=== PATIENT | male | born 1985 | race Caucasian/White ===

== ENCOUNTER 2019-06-04 12:24 | Emergency (ER) | payer MEDICAID, OTHER ==
[~2019-06-04] VITALS: Ht 167.6 cm; Wt 77.0 kg
[2019-06-04 13:48] LABS: BASOPHILS % 0.4 % (0.0-2.0); EOSINOPHILS % 0.3 % (0.0-5.0); HEMATOCRIT. 40.7 % (42.0-52.0); LYMPHOCYTES % 17.6 % (20.0-50.0); MEAN CORPUSCULAR HEMOGLOBIN 32.6 pg (28.0-32.0); MEAN CORPUSCULAR VOLUME 95.1 fL (80.0-94.0); MEAN PLATELET VOLUME 8.5 fl (7.4-10.4); MONOCYTES % 8.9 % (2.0-8.0); NEUTROPHILS % 72.8 % (40.0-76.0); PLATELET 96 x1000/uL (130-400); RED BLOOD CELL COUNT 4.28 mill/uL (4.7-6.1); RED CELL DISTRIBUTION WIDTH 14.4 % (11.6-14.6)
[2019-06-04 13:56] LABS: CLARITY URINE CLEAR (CLEAR); COLOR URINE YELLOW (YELLOW); KETONES URINE NEGATIVE (NEGATIVE); LEUKOCYTE ESTERASE URINE NEGATIVE (NEGATIVE); NITRITE URINE NEGATIVE (NEGATIVE); OCCULT BLOOD URINE NEGATIVE (NEGATIVE); PH URINE 6.5 (4.5-8.0); PROTEIN URINE NEGATIVE (NEGATIVE); SPECIFIC GRAVITY URINE 1.008 (1.005-1.030); UROBILINOGEN URINE 0.2 E.U./dL (0.2-1.0)
[2019-06-04 13:56] LABS: CHLORIDE 106 mEq/L (98-107)
[2019-06-04 14:15] LABS: ETHANOL BLOOD 407 mg/dL
[2019-06-04 14:29] LABS: *BENZODIAZEPINES SCREEN URINE PRESUMTIVE POSITIVE (NEGATIVE)
[2019-06-04 14:30] LABS: *AMPHETAMINES SCREEN URINE NEGATIVE (NEGATIVE); CANNABINOID URINE SCREEN NEGATIVE (NEGATIVE); PHENCYCLIDINE URINE SCREEN NEGATIVE (NEGATIVE)
[2019-06-04 14:35] LABS: *BARBITURATES SCREEN URINE NEGATIVE (NEGATIVE)
[2019-06-04 14:40] LABS: OPIATES URINE SCREEN NEGATIVE (NEGATIVE)
[2019-06-04 14:49] LABS: *COCAINE SCREEN URINE NEGATIVE (NEGATIVE); METHADONE URINE SCREEN NEGATIVE (NEGATIVE)
[2019-06-04 16:30] VITALS: BP 113/61
[2019-06-04] MEDS ORDERED: CHLORDIAZEPOXIDE 25MG CAPSULE PO ONE (18:00)
== END 2019-06-04 19:55 | disposition home or self-care (01) ==
LOC: ER 12:24
DX: T51.0X1A Toxic effect of ethanol, accidental (unintentional), initial encounter (principal); F10.129 Alcohol abuse with intoxication, unspecified; F15.10 Other stimulant abuse, uncomplicated; Y90.8 Blood alcohol level of 240 mg/100 ml or more; R03.0 Elevated blood-pressure reading, without diagnosis of hypertension; R73.9 Hyperglycemia, unspecified; Y92.410 Unspecified street and highway as the place of occurrence of the external cause
CPT/HCPCS: 36415; 80053; 80305; 80307; 80320; 80329; 81003; 85025; 99283; G0480

== ENCOUNTER 2019-06-06 13:52 | Emergency (ER) | payer SELFPAY ==
[~2019-06-06] VITALS: Ht 175.3 cm; Wt 82.0 kg
[2019-06-06 21:30] VITALS: BP 159/90
== END 2019-06-06 22:03 | disposition home or self-care (01) ==
LOC: ER 13:52
DX: F10.129 Alcohol abuse with intoxication, unspecified (principal); L53.9 Erythematous condition, unspecified; R00.0 Tachycardia, unspecified; R51 Headache; Y90.8 Blood alcohol level of 240 mg/100 ml or more
CPT/HCPCS: 36415; 80320; 93005; 99285; G0480

== ENCOUNTER 2019-06-06 23:12 | Inpatient (IN) | payer MEDICAID, OTHER ==
[~2019-06-06] VITALS: Ht 165.1 cm; Wt 77.7 kg
[2019-06-07] MEDS ORDERED: ONDANSETRON HCL 4MG/2ML INJ IV STA (00:19)
[2019-06-07] MEDS ORDERED: SODIUM CHLORIDE 0.9% 1,000 ML IV ONE ×3 (00:19→08:38)
[2019-06-07] MEDS ORDERED: LORAZEPAM 2MG/ML CPJ IV STA (00:19)
[2019-06-07] MEDS ORDERED: FOLIC ACID 1 MG, THIAMINE HCL 100 MG, MVI, ADULT NO.1 10 ML in DEXTROSE 5% WATER 1,000 ML IV ONE ×4 (00:30)
[2019-06-07 00:46] LABS: HEMATOCRIT. 40.8 % (42.0-52.0); HEMOGLOBIN. 14.2 g/dL (14.0-18.0); MEAN CORPUSCULAR VOLUME 94.8 fL (80.0-94.0); MEAN PLATELET VOLUME 8.3 fl (7.4-10.4); PLATELET 83 x1000/uL (130-400); RED CELL DISTRIBUTION WIDTH 14.4 % (11.6-14.6)
[2019-06-07 00:50] LABS: CHLORIDE 91 mEq/L (98-107)
[2019-06-07 01:00] LABS: CREATINE KINASE 608 IU/L (39-308)
[2019-06-07 01:40] LABS: ETHANOL BLOOD 292 mg/dL
[2019-06-07] MEDS ORDERED: INSULIN REGULAR (HUMULIN R) 300UNITS/3ML SUBCUT ONE (02:45)
[2019-06-07 02:53] LABS: CLARITY URINE CLEAR (CLEAR); COLOR URINE YELLOW (YELLOW); KETONES URINE NEGATIVE (NEGATIVE); LEUKOCYTE ESTERASE URINE NEGATIVE (NEGATIVE); NITRITE URINE NEGATIVE (NEGATIVE); OCCULT BLOOD URINE NEGATIVE (NEGATIVE); PROTEIN URINE NEGATIVE (NEGATIVE); SPECIFIC GRAVITY URINE 1.008 (1.005-1.030); UROBILINOGEN URINE 0.2 E.U./dL (0.2-1.0)
[2019-06-07 03:06] LABS: *AMPHETAMINES SCREEN URINE NEGATIVE (NEGATIVE); *BARBITURATES SCREEN URINE NEGATIVE (NEGATIVE); *BENZODIAZEPINES SCREEN URINE NEGATIVE (NEGATIVE)
[2019-06-07 03:07] LABS: *COCAINE SCREEN URINE NEGATIVE (NEGATIVE); CANNABINOID URINE SCREEN NEGATIVE (NEGATIVE); METHADONE URINE SCREEN NEGATIVE (NEGATIVE); PHENCYCLIDINE URINE SCREEN NEGATIVE (NEGATIVE)
[2019-06-07 04:17] LABS: PLATELET ESTIMATE DECREASED
[2019-06-07] MEDS ORDERED: LORAZEPAM 2MG/ML CPJ IV ONE ×2 (05:30→08:45)
[2019-06-07 09:44] LABS: CHLORIDE 94 mEq/L (98-107)
[2019-06-07 09:54] LABS: CREATINE KINASE 458 IU/L (39-308)
[2019-06-07] MEDS: SODIUM CHLORIDE 0.9% 1,000 ML IV SCH ×2 (10:24→20:24)
[2019-06-07] MEDS ORDERED: NITROGLYCERIN 0.4MG TABLET SL SL PRN (10:30)
[2019-06-07] MEDS ORDERED: ACETAMINOPHEN 325MG TABLET PO PRN (10:30)
[2019-06-07] MEDS ORDERED: DOCUSATE SODIUM 100MG CAPSULE PO PRN (10:30)
[2019-06-07] MEDS ORDERED: MVI, ADULT NO.1 10 ML, FOLIC ACID 1 MG, THIAMINE HCL 100 MG in SODIUM CHLORIDE 0.9% 1,0... IV SCH ×4 (10:30)
[2019-06-07] MEDS ORDERED: LORAZEPAM 2MG/ML CPJ IV PRN (10:30)
[2019-06-07] MEDS ORDERED: MAGNESIUM/ALUMINUM HYDROXIDE/SIMETHICONE 30ML UDC PO PRN (10:30)
[2019-06-07] MEDS ORDERED: DIPHENHYDRAMINE 50MG/ML VIAL IV PRN (10:30)
[2019-06-07] MEDS ORDERED: DEXTROSE 50% WATER 50ML SYRINGE IV PRN (10:30)
[2019-06-07] MEDS ORDERED: ONDANSETRON HCL 4MG/2ML INJ IV PRN (10:30)
[2019-06-07] MEDS ORDERED: IPRATROPIUM/ALBUTEROL 0.5-3(2.5)MG/3ML NEB NEB PRN (10:30)
[2019-06-07] MEDS ORDERED: CLONIDINE 0.1MG TABLET PO PRN (10:30)
[2019-06-07] MEDS ORDERED: KETOROLAC 15MG/ML VIAL IV PRN (10:30)
[2019-06-07] MEDS ORDERED: GUAIFENESIN 200MG/10ML SUGAR FREE UDC PO PRN (10:30)
[2019-06-07] MEDS: BLOOD SUGAR DIAGNOSTIC STRIP TEST SCH ×3 (13:03→21:00)
[2019-06-07] MEDS: INSULIN LISPRO 100 UNITS/ML SUBCUT SCH ×3 (13:28→22:21)
[2019-06-07] MEDS: CHLORDIAZEPOXIDE 25MG CAPSULE PO SCH ×2 (14:24→22:00)
[2019-06-07] MEDS: FAMOTIDINE 20MG TABLET PO SCH (21:00)
[2019-06-07 23:50] VITALS: BP 135/88
[2019-06-08] MEDS: ACETAMINOPHEN 325MG TABLET PO PRN ×2 (01:47→20:01)
[2019-06-08 04:00] VITALS: BP 130/62
[2019-06-08] MEDS ORDERED: INSU100I28 SQ (04:05)
[2019-06-08] MEDS: CHLORDIAZEPOXIDE 25MG CAPSULE PO SCH (05:50)
[2019-06-08] MEDS: BLOOD SUGAR DIAGNOSTIC STRIP TEST SCH ×4 (05:56→21:57)
[2019-06-08] MEDS ORDERED: MVI, ADULT NO.1 10 ML, FOLIC ACID 1 MG, THIAMINE HCL 100 MG in SODIUM CHLORIDE 0.9% 1,0... IV SCH ×4 (06:00)
[2019-06-08 08:00] VITALS: BP 116/78
[2019-06-08] MEDS ORDERED: PNEUMOCOCCAL 23-VAL P-SAC VAC 0.5 ML IM ONE (08:00)
[2019-06-08] MEDS: FAMOTIDINE 20MG TABLET PO SCH ×2 (09:22→21:51)
[2019-06-08] MEDS: INSULIN LISPRO 100 UNITS/ML SUBCUT SCH ×4 (09:22→22:09)
[2019-06-08 12:00] VITALS: BP 125/78
[2019-06-08 16:00] VITALS: BP 132/84
[2019-06-08] MEDS: SODIUM CHLORIDE 0.9% 1,000 ML IV SCH (18:20)
[2019-06-08 20:00] VITALS: BP 124/76
[2019-06-09] VITALS: BP 128/80
[2019-06-09] MEDS: ACETAMINOPHEN 325MG TABLET PO PRN ×3 (00:11→09:18)
[2019-06-09] MEDS: SODIUM CHLORIDE 0.9% 1,000 ML IV SCH (02:41)
[2019-06-09 04:00] VITALS: BP 122/82
[2019-06-09] MEDS: BLOOD SUGAR DIAGNOSTIC STRIP TEST SCH ×2 (06:01→12:40)
[2019-06-09 08:00] VITALS: BP 110/74
[2019-06-09] MEDS: FAMOTIDINE 20MG TABLET PO SCH (09:18)
[2019-06-09] MEDS: INSULIN LISPRO 100 UNITS/ML SUBCUT SCH ×2 (09:19→13:49)
[2019-06-09] MEDS: CLINDAMYCIN HCL 150MG CAPSULE PO SCH ×2 (09:27→13:49)
[2019-06-09 11:30] LABS: BASOPHILS % 0.8 % (0.0-2.0); EOSINOPHILS % 0.4 % (0.0-5.0); HEMATOCRIT. 38.2 % (42.0-52.0); HEMOGLOBIN. 13.3 g/dL (14.0-18.0); LYMPHOCYTES % 20.1 % (20.0-50.0); MEAN CORPUSCULAR HEMOGLOBIN 32.8 pg (28.0-32.0); MEAN CORPUSCULAR VOLUME 93.8 fL (80.0-94.0); MEAN PLATELET VOLUME 8.9 fl (7.4-10.4); NEUTROPHILS % 67.7 % (40.0-76.0); PLATELET 100 x1000/uL (130-400); RED BLOOD CELL COUNT 4.07 mill/uL (4.7-6.1); RED CELL DISTRIBUTION WIDTH 14.8 % (11.6-14.6)
[2019-06-09 12:00] VITALS: BP 126/85
[2019-06-09] MEDS ORDERED: GLIP-12 MT (15:41)
[2019-06-09] MEDS ORDERED: METF-815 MT (15:43)
[2019-06-09] MEDS ORDERED: THIA100T72 MT (15:44)
[2019-06-09] MEDS ORDERED: FOLI-43 MT (15:44)
[2019-06-09] MEDS ORDERED: MULT-1146 MT (15:44)
[2019-06-09] MEDS ORDERED: CLIN300C11 MT (15:45)
[2019-06-09 15:49] VITALS: BP 126/85
[2019-06-09 16:54] LABS: CHLORIDE 100 mEq/L (98-107)
[2019-06-10 09:10] LABS: OPIATES URINE SCREEN NEGATIVE (NEGATIVE)
== END 2019-06-09 17:48 | disposition home or self-care (01) | DRG 351 ==
LOC: ER 23:12 → 7WST 06-07 09:28 → ENRESERV 06-07 22:52
PROVIDERS: ADMIT Internal Medicine; ATTEND Internal Medicine
DX: M62.82 Rhabdomyolysis (principal); E11.65 Type 2 diabetes mellitus with hyperglycemia; F10.239 Alcohol dependence with withdrawal, unspecified; E86.0 Dehydration; F10.229 Alcohol dependence with intoxication, unspecified; Y90.8 Blood alcohol level of 240 mg/100 ml or more; E87.1 Hypo-osmolality and hyponatremia; R74.0 Nonspecific elevation of levels of transaminase and lactic acid dehydrogenase [LDH]; Z79.4 Long term (current) use of insulin; Z79.899 Other long term (current) drug therapy
CPT/HCPCS: 36415; 80048; 80053; 80305; 80307; 80320; 80329; 81003; 82140; 82550; 82962; 83036; 83735; 84443; 84484; 85025; 93005; 96365; 99285; J1815; J1885; J2060; J2405; J3411; J3490; J7030; J7070; G0480